=== PATIENT | female | born 1955 ===

== ENCOUNTER 2018-02-14 18:20 | Outpatient (REF) | payer MEDICARE, OTHER, SELFPAY ==
[2018-02-14 20:49] LABS: COMMENT (LAB VIEW ONLY) 115.44 mg/dL; Microalb ug/mg Crea 12.2 ug/mg Cr
== END 2018-02-14 18:40 ==
LOC: NCHCN 18:20
PROVIDERS: PCP Internal Medicine; Visit Provider Internal Medicine
DX: E11.9 Type 2 diabetes mellitus without complications (principal)
CPT/HCPCS: 82043; 82570

== ENCOUNTER 2019-02-20 20:04 | Outpatient (REF) | payer MEDICARE, OTHER, SELFPAY ==
[2019-02-20 20:32] LABS: Anion Gap 11.6 mmol/L (3-11); BUN 18 mg/dL (7-18); CO2 25.4 mmol/L (21.0-32.0); CREATININE 0.66 mg/dL (0.55-1.02); Calcium 8.9 mg/dL (8.5-10.1); Calculated LDL 136 mg/dL; Chloride 104 mmol/L (98-107); Cholesterol 205 mg/dL (<200); Glucose 98 mg/dL (74-106); HDL Cholesterol 48 mg/dL (40-60); Potassium 4.2 mmol/L (3.5-5.1); Sodium 141 mmol/L (136-145); Triglyceride 106 mg/dL (<150)
== END 2019-02-20 20:24 ==
LOC: NCHCN 20:04
PROVIDERS: PCP Internal Medicine; Visit Provider Internal Medicine
DX: E11.9 Type 2 diabetes mellitus without complications (principal); E78.5 Hyperlipidemia, unspecified
CPT/HCPCS: 80048; 80061

== ENCOUNTER 2019-12-26 11:33 | Outpatient (REF) | payer MEDICARE, OTHER, SELFPAY ==
[2019-12-26 19:31] LABS: ALT 40 U/L (14-59); Anion Gap 7.2 mmol/L (3-11); BUN 14 mg/dL (7-18); CO2 27.8 mmol/L (21.0-32.0); CREATININE 0.65 mg/dL (0.55-1.02); Chloride 101 mmol/L (98-107); Glucose 222 mg/dL (74-106); LDL CHOLESTEROL 159 mg/dL (<100); Potassium 4.4 mmol/L (3.5-5.1); Sodium 136 mmol/L (136-145); TSH 1.97 uIU/mL (0.36-3.74)
== END 2019-12-26 11:53 ==
LOC: NCHCN 11:33
PROVIDERS: PCP Internal Medicine; Visit Provider Internal Medicine
DX: Z00.00 Encounter for general adult medical examination without abnormal findings (principal); E11.9 Type 2 diabetes mellitus without complications
CPT/HCPCS: 80048; 83721; 84443; 84460

== ENCOUNTER 2021-01-07 15:19 | Outpatient (REF) | payer MEDICARE, OTHER, SELFPAY ==
[2021-01-07 19:36] LABS: ALT 51 U/L (14-59); AST 21 U/L (15-37); Albumin 3.9 g/dL (3.4-5.0); Alkaline Phosphatase 194 U/L (46-116); Anion Gap 6.5 mmol/L (3-11); BUN 14 mg/dL (7-18); Bilirubin, Total 0.3 mg/dL (0.2-1.0); CO2 30.5 mmol/L (21.0-32.0); CREATININE 0.6 mg/dL (0.55-1.02); Calcium 8.9 mg/dL (8.5-10.1); Chloride 104 mmol/L (98-107); Glucose 169 mg/dL (74-106); Sodium 141 mmol/L (136-145); Total Protein 6.8 g/dL (6.4-8.2)
[2021-01-08 09:26] LABS: GGT 139 U/L (5-55)
== END 2021-01-07 15:20 | disposition home or self-care (01) ==
LOC: NCHCN 15:19
PROVIDERS: PCP Internal Medicine; Visit Provider Internal Medicine
DX: E11.9 Type 2 diabetes mellitus without complications (principal); K75.81 Nonalcoholic steatohepatitis (NASH); E66.9 Obesity, unspecified
CPT/HCPCS: 80053; 82977

== ENCOUNTER 2022-02-10 14:49 | Outpatient (REF) | payer MEDICARE, OTHER, SELFPAY ==
[2022-02-10 20:09] LABS: Iron 59 ug/dL (50-170); Total Iron Binding Capacity 283 ug/dL (250-450); Transferrin Sat 21 % (15-50)
[2022-02-10 20:20] LABS: ALT 46 U/L (14-59); AST 17 U/L (15-37); Albumin 3.8 g/dL (3.4-5.0); Alkaline Phosphatase 191 U/L (46-116); Anion Gap 8.8 mmol/L (3-11); BUN 18 mg/dL (7-18); Bilirubin, Total 0.4 mg/dL (0.2-1.0); CO2 28.2 mmol/L (21.0-32.0); CREATININE 0.6 mg/dL (0.55-1.02); Calcium 9.3 mg/dL (8.5-10.1); Chloride 101 mmol/L (98-107); Glucose 167 mg/dL (74-106); Potassium 4.2 mmol/L (3.5-5.1); Sodium 138 mmol/L (136-145); Total Protein 7.3 g/dL (6.4-8.2)
[2022-02-14 10:16] LABS: Hepatitis C Ab w Rflx HCV PCR Negative (Negative)
== END 2022-02-10 14:50 | disposition home or self-care (01) ==
LOC: NCHCN 14:49
PROVIDERS: PCP Internal Medicine; Visit Provider Internal Medicine
DX: E11.9 Type 2 diabetes mellitus without complications (principal); I35.0 Nonrheumatic aortic (valve) stenosis; E78.5 Hyperlipidemia, unspecified; Z11.59 Encounter for screening for other viral diseases
CPT/HCPCS: 80053; 86803; 83540; 83550; 84443

== ENCOUNTER 2022-05-12 11:38 | Outpatient (REF) | payer MEDICARE, OTHER, SELFPAY ==
[2022-05-12 19:32] LABS: ALT 68 U/L (14-59); Calculated LDL 154 mg/dL (<100); Cholesterol 240 mg/dL (<200); Glucose 197 mg/dL (74-106); HDL Cholesterol 43 mg/dL (40-60); Triglyceride 216 mg/dL (<150)
[2022-05-12 19:45] LABS: Creatine Kinase 41 U/L (26-192)
== END 2022-05-12 11:39 | disposition home or self-care (01) ==
LOC: NCHCN 11:38
PROVIDERS: PCP Internal Medicine; Visit Provider Internal Medicine
DX: E78.5 Hyperlipidemia, unspecified (principal); E11.9 Type 2 diabetes mellitus without complications
CPT/HCPCS: 80061; 82550; 82947; 84460

== ENCOUNTER 2022-11-21 15:41 | Outpatient (REF) | payer MEDICARE, OTHER, SELFPAY ==
--- OUTSIDE RECORDS SUMMARY | 2022-11-21 15:47 | XMS_ITS | Continuity of Care Document ---
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
--- OUTSIDE RECORDS SUMMARY | 2022-11-21 15:47 | XMS_ITS | Continuity of Care Document ---
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
[2022-11-21 19:59] LABS: Bilirubin Negative (Negative); Blood Small (Negative); Clarity Turbid (Clear); Glucose 250 mg/dL (Negative); Ketones Negative (Negative); Leukocyte Esterase Trace (Negative); Nitrite Negative (Negative); Specific Gravity >= 1.030 (1.005-1.025); Urobilinogen 0.2 mg/dL (Up to 0.2)
[2022-11-21 20:18] LABS: Bacteria Moderate HPF (Negative); C & S Indicated? Yes; Crystals Many Amorphous HPF (Negative); Epithelial Cells Rare HPF (Negative); Mucus Negative (Negative)
[2022-11-21 20:48] LABS: COMMENT (LAB VIEW ONLY) 126.53 mg/dL; Microalb ug/mg Crea 26.6 ug/mg Cr
== END 2022-11-21 15:42 | disposition home or self-care (01) ==
LOC: NCHCN 15:41
PROVIDERS: PCP Internal Medicine; Visit Provider Internal Medicine
DX: E11.9 Type 2 diabetes mellitus without complications (principal); I35.0 Nonrheumatic aortic (valve) stenosis; R10.31 Right lower quadrant pain; R82.998 Other abnormal findings in urine; R82.79 Other abnormal findings on microbiological examination of urine
CPT/HCPCS: 87077; 81003; 81015; 82043; 82570; 87086; 87186

== ENCOUNTER 2023-02-20 15:56 | Outpatient (REF) | payer MEDICARE, OTHER, SELFPAY ==
[2023-02-20 20:34] LABS: Hemoglobin A1C 7.4 % (<5.7)
[2023-02-20 20:35] LABS: ALT 43 U/L (14-59); Anion Gap 8.3 mmol/L (3-11); BUN 15 mg/dL (7-18); CO2 28.7 mmol/L (21.0-32.0); CREATININE 0.8 mg/dL (0.55-1.02); Calcium 8.8 mg/dL (8.5-10.1); Calculated LDL 75 mg/dL (<100); Chloride 104 mmol/L (98-107); Cholesterol 162 mg/dL (<200); Estimated GFR 79.22 (mL/min/1.73m2); Glucose 182 mg/dL (74-106); HDL Cholesterol 44 mg/dL (40-60); Potassium 4.1 mmol/L (3.5-5.1); Sodium 141 mmol/L (136-145); Triglyceride 219 mg/dL (<150)
[2023-02-20 20:47] LABS: Creatine Kinase 65 U/L (26-192)
== END 2023-02-20 15:57 | disposition home or self-care (01) ==
LOC: NCHCN 15:56
PROVIDERS: PCP Internal Medicine; Visit Provider Internal Medicine
DX: E11.9 Type 2 diabetes mellitus without complications (principal); E78.5 Hyperlipidemia, unspecified
CPT/HCPCS: 80048; 80061; 82550; 83036; 84460

== ENCOUNTER 2023-12-27 12:16 | Outpatient (REF) | payer MEDICARE, OTHER, SELFPAY ==
[2023-12-27 19:55] LABS: ALT 35 U/L (14-59); AST 25 U/L (15-37); Albumin 3.5 g/dL (3.4-5.0); Alkaline Phosphatase 195 U/L (46-116); Anion Gap 5.4 mmol/L (3-11); BUN 16 mg/dL (7-18); Bilirubin, Total 0.42 mg/dL (0.2-1.0); CO2 28.6 mmol/L (21.0-32.0); CREATININE 0.6 mg/dL (0.55-1.02); Calcium 8.8 mg/dL (8.5-10.1); Calculated LDL 104 mg/dL (<100); Chloride 106 mmol/L (98-107); Cholesterol 186 mg/dL (<200); Glucose 161 mg/dL (74-106); HDL Cholesterol 42 mg/dL (40-60); Potassium 4.5 mmol/L (3.5-5.1); Sodium 140 mmol/L (136-145); Total Protein 6.9 g/dL (6.4-8.2); Triglyceride 204 mg/dL (<150)
== END 2023-12-27 12:17 | disposition home or self-care (01) ==
LOC: NCHCN 12:16
PROVIDERS: PCP Internal Medicine; Visit Provider Internal Medicine
DX: K75.81 Nonalcoholic steatohepatitis (NASH) (principal)
CPT/HCPCS: 80053; 80061

== ENCOUNTER 2024-12-11 14:55 | Outpatient (REF) | payer MEDICARE, OTHER, SELFPAY ==
[2024-12-11 20:40] LABS: Abs Immature Grans 0.01 10^3/uL (0.0-0.06); HCT 42.6 % (36.0-46.0); HGB 14.5 g/dL (11.2-15.7); Immature Grans % 0.2 %; MCH 29.3 pg (27.0-33.0); MCHC 34.0 % (32.0-36.0); MCV 86 fL (80-95); MPV 10.2 fL (8.0-11.0); Platelet Count 210 10^3/uL (130-400); RBC 4.95 10^6/uL (3.93-5.22); RDW 13.0 % (11.7-14.6); RDW-SD 40.8 fL; WBC 5.03 10^3/uL (4.4-10.8)
== END 2024-12-11 14:56 | disposition home or self-care (01) ==
LOC: NCHCN 14:55
PROVIDERS: PCP Internal Medicine; Visit Provider Nurse Practitioner Family
DX: R50.9 Fever, unspecified (principal)
CPT/HCPCS: 85025